=== PATIENT | female | born 1965 | race American Indian/Alaskan Native ===

== ENCOUNTER 2020-01-06 04:35 | Emergency (ER) | payer SELFPAY ==
[2020-01-06] MEDS ORDERED: levoFLOXacin 500 MG TAB PO ONE (08:08)
[2020-01-06] MEDS ORDERED: ALBUTEROL 2.5 MG/3 ML NEBU IH ONE (08:08)
[2020-01-06] MEDS ORDERED: IBUPROFEN 800 MG TAB PO ONE (08:09)
--- NOTE | 2020-01-06 08:10 | Emergency Department Report ---
Minor Respiratory - HPI Chief Complaint: Upper Respiratory Infection Stated Complaint: COUGH DIZZY W/ WEAKNESS Time Seen by Provider: 01/06/20 07:35 Duration: 5 Days (Patient is a 48) Pain Location: Chest Severity: mild Minor Respiratory: Yes Rhinorrhea, Yes Able to Tolerate Fluids, Yes Cough, Yes Fever, No Sore Throat, No Ear Pain, No Sick Contacts, No Hemoptysis, No Chest Pain, No Shortness of Breath Other History: Patient is a 54-year-old -[place] female who comes to the ER today with a cough that started on Sunday. She endorses some vomiting with the cough. She also reports fever up to 101 at home. She did get a influenza vaccine this year. In the triage area her temp was 100.3. Heart rate 110. Patient does have a history of diabetes, hypothyroidism and hypertension. She is a prior smoker. She takes her insulin and Synthroid daily. She has rhonchi on initial exam and given her past medical history and concerns for pneumonia. ED Review of Systems ROS: Stated complaint: COUGH DIZZY W/ WEAKNESS Other details as noted in HPI Comment: All other systems reviewed and negative ED Past Medical Hx - Past Medical History Previous Medical History?: Yes Hx Hypertension: Yes Hx CVA: No Hx Heart Attack/AMI: No Hx Congestive Heart Failure: No Hx Diabetes: Yes Hx Deep Vein Thrombosis: No Hx Pulmonary Embolism: No Hx GERD: No Additional medical history: Hyperlipedemia. hyperthyroid - Surgical History Past Surgical History?: Yes Additional Surgical History: Right ankle surgery. right thyroid removed - Family History Family history: no significant - Social History Smoking Status: Never Smoker Substance Use Type: None - Medications Home Medications: Home Medications Medication Instructions Recorded Confirmed Last Taken Type Azithromycin [Zithromax Z-DEYVI] 250 mg PO DAILY #6 tablet 01/06/20 Unknown Rx Benzonatate [Tessalon Perles] 100 mg PO Q12H PRN #20 capsule 01/06/20 Unknown Rx Fluticasone [Flonase] 1 spray NS QDAY #1 bottle 01/06/20 Unknown Rx predniSONE [Deltasone] 20 mg PO DAILY #5 tablet 01/06/20 Unknown Rx Minor Respiratory Exam - Exam General: Vital signs noted. No distress. Alert and acting appropriately. HEENT: Yes Moist Mucous Membranes, No Pharyngeal Erythema, No Pharyngeal Exudates, No Rhinorrhea, No Conjuctival Injection, No Frontal Tenderness, No Maxillary Tenderness Ear: Neither TM Bulge, Neither TM Erythema, Neither EAC Pain, Neither EAC Discharge Neck: Yes Supple, No Adenopathy Lungs: Yes Good Air Exchange, Yes Wheezes, Yes Ronchi, No Stridor, No Cough, No Labored Respirations, No Retractions, No Use of Accessory Muscles, No Other Abnormal Lung Sounds Heart: Yes Regular, No Murmur Abdomen: Yes Normal Bowel Sounds, No Tenderness, No Peritoneal Signs Skin: No Rash, No Edema Neurologic: Alert and oriented, no deficits. Musculoskeletal: Unremarkable. ED Course Vital Signs 01/06/20 04:40 Temperature 100.3 F H Pulse Rate 109 H Respiratory 18 Rate Blood Pressure 170/79 O2 Sat by Pulse 96 Oximetry ED Medical Decision Making - Radiology Data Radiology results: report reviewed, image reviewed - Medical Decision Making XRAY NOTED DUONEB IN ER- WITH IMPROVEMENT DC HOME WITH RX AND PCP FOLLOW UP Vital Signs (72 hours) 01/06/20 04:40 Temperature 100.3 F H Pulse Rate 109 H Respiratory 18 Rate Blood Pressure 170/79 O2 Sat by Pulse 96 Oximetry - Differential Diagnosis RO PNA Critical care attestation.: If time is entered above; I have spent that time in minutes in the direct care of this critically ill patient, excluding procedure time. ED Disposition Clinical Impression: Bronchitis, URI (upper respiratory infection) Disposition: DC- TO HOME OR SELFCARE Is pt being admited?: No Does the pt Need Aspirin: No Condition: Stable Instructions: Acute Bronchitis (ED) Additional Instructions: STAY WELL HYDRATED MOTRIN OR TYLENOL FOR FEVER MEDS ORDERED TODAY FOLLOW YOUR BLOOD SUGARS THEY MAY INC WITH INFECTION FOLLOW UP WITH PCP ON SUNDAY TO BE SURE YOU ARE GETTING BETTER Prescriptions: predniSONE [Deltasone] 20 mg PO DAILY #5 tablet Fluticasone [Flonase] 1 spray NS QDAY #1 bottle Benzonatate [Tessalon Perles] 100 mg PO Q12H PRN #20 capsule PRN Reason: Cough Azithromycin [Zithromax Z-DEYVI] 250 mg PO DAILY #6 tablet Referrals: COURTNEY GASTON MD [Staff Physician] - 3-5 Days Forms: Work/School Release Form(ED) Time of Disposition: 08:13
--- NOTE | 2020-01-06 08:19 | XRay Report ---
CHEST 2 VIEWS INDICATION: Shortness of breath, cough with nausea and vomiting for 2 days. Body aches and chills.. COMPARISON: None FINDINGS: Support devices: None. Heart: Within normal limits. Lungs/pleura: No acute air space or interstitial disease. No pneumothorax. Additional findings: None. IMPRESSION: Unremarkable chest films. Signer Name: Tirso Sagastume Jr, MD Signed: 01/06/2020 8:15 AM Workstation Name: [id number]
[2020-01-06] MEDS ORDERED: predniSONE 20 MG TAB PO NR (09:00)
[2020-01-06 10:12] VITALS: BP 113/58
[2020-01-06 10:57] LABS: Hematocrit 41.4 % (30.3-42.9); Hemoglobin 13.6 gm/dl (10.1-14.3); Mean Corpuscular HGB Conc 33 % (30-34); Mean Corpuscular Volume 87 fl (79-97); Platelet Count 223 K/mm3 (140-440); Red Blood Count 4.77 M/mm3 (3.65-5.03)
[2020-01-06 11:09] LABS: Albumin 3.8 g/dL (3.9-5); Calcium 8.8 mg/dL (8.4-10.2)
--- NOTE | 2020-01-06 11:50 | Event Note ---
Date: 01/06/20 1100 Sat 94 on room air denies cp or sob Pt added to history recent dx with non ca brain mass Lab Results 01/06/20 01/06/20 01/06/20 Range/Units 10:23 10:23 10:23 WBC 6.2 (4.5-11.0) K/mm3 RBC 4.77 (3.65-5.03) M/mm3 Hgb 13.6 (10.1-14.3) gm/dl Hct 41.4 (30.3-42.9) % MCV 87 (79-97) fl MCH 29 (28-32) pg MCHC 33 (30-34) % RDW 16.0 H (13.2-15.2) % Plt Count 223 (140-440) K/mm3 Lymph % (Auto) [place] % (Auto) [place] Eos % (Auto) [place] Baso % (Auto) [place] Lymph # [place] # [place] Eos # [place] Baso # [place] Seg Neutrophils % [place] Seg Neutrophils # [place] D-Dimer (0-234) ng/mlDDU Sodium 137 (137-145) mmol/L Potassium 3.7 (3.6-5.0) mmol/L Chloride 99.1 (98-107) mmol/L Carbon Dioxide 20 L (22-30) mmol/L Anion Gap 22 mmol/L BUN 16 (7-17) mg/dL Creatinine 1.4 H (0.7-1.2) mg/dL Estimated GFR 47 ml/min BUN/Creatinine Ratio 11 % Glucose 304 H (65-100) mg/dL Lactic Acid (0.7-2.0) mmol/L Calcium 8.8 (8.4-10.2) mg/dL Total Bilirubin 0.20 (0.1-1.2) mg/dL AST 11 (5-40) units/L ALT 12 (7-56) units/L Alkaline Phosphatase 55 (35-129) units/L Troponin T < 0.010 (0.00-0.029) ng/mL Total Protein 6.1 L (6.3-8.2) g/dL Albumin 3.8 L (3.9-5) g/dL Albumin/Globulin Ratio 1.7 % 01/06/20 01/06/20 01/06/20 Range/Units 10:23 10:23 11:18 WBC 6.4 (4.5-11.0) K/mm3 RBC 4.61 (3.65-5.03) M/mm3 Hgb 13.3 (10.1-14.3) gm/dl Hct 39.8 (30.3-42.9) % MCV 86 (79-97) fl MCH 29 (28-32) pg MCHC 33 (30-34) % RDW 15.8 H (13.2-15.2) % Plt Count 212 (140-440) K/mm3 Lymph % (Auto) [place] % (Auto) [place] Eos % (Auto) Baso % (Auto) Lymph # [place] # Eos # Baso # Seg Neutrophils % Seg Neutrophils # D-Dimer 319.95 H (0-234) ng/mlDDU Sodium (137-145) mmol/L Potassium (3.6-5.0) mmol/L Chloride (98-107) mmol/L Carbon Dioxide (22-30) mmol/L Anion Gap mmol/L BUN (7-17) mg/dL Creatinine (0.7-1.2) mg/dL Estimated GFR ml/min BUN/Creatinine Ratio % Glucose (65-100) mg/dL Lactic Acid 1.70 (0.7-2.0) mmol/L Calcium (8.4-10.2) mg/dL Total Bilirubin (0.1-1.2) mg/dL AST (5-40) units/L ALT (7-56) units/L Alkaline Phosphatase (35-129) units/L Troponin T (0.00-0.029) ng/mL Total Protein (6.3-8.2) g/dL Albumin (3.9-5) g/dL Albumin/Globulin Ratio % given ddimer elevated and recent brain mass- CTA chest ordered 1230 CT pending 1320 CTA negative sat 99 on room air and HR 90. reports feeling better dc home with dc plan of care and pcp follow up in AM.
[2020-01-06 12:00] LABS: Hematocrit 39.8 % (30.3-42.9); Hemoglobin 13.3 gm/dl (10.1-14.3); Mean Corpuscular HGB Conc 33 % (30-34); Mean Corpuscular Volume 86 fl (79-97); Platelet Count 212 K/mm3 (140-440); Red Blood Count 4.61 M/mm3 (3.65-5.03); Red Cell Distribution Width 15.8 % (13.2-15.2)
[2020-01-06 12:56] LABS: Basophils % (Manual) 0 % (0.0-1.8); Eosinophils % (Manual) 0 % (0.0-4.3); RBC Morphology Normal; Total Cells Counted 100; Toxic Vacuolation 2+
[2020-01-06 12:57] LABS: Platelet Estimate Consistent w Auto
--- NOTE | 2020-01-06 13:06 | Cat Scan Report ---
CTA chest with contrast INDICATION : hypoxia. TECHNIQUE: Axial imaging performed through the chest, with contrast bolus timing set to maximize opa cification of the pulmonary arteries. 3-plane MIP reformatted images were obtained. All CT scans at this location are performed using CT dose reduction for ALARA by means of automated exposure control. 100 mL of intravenous contrast administered. Consent was obtained prior to the administration of cont rast. COMPARISON: No relevant comparative imaging. FINDINGS: Bolus: Contrast bolus timing is adequate. PTE: No filling defect is present to suggest PTE. Mediastinum: Heart and great vessels appear normal. No pathologic mediastinal adenopathy. Lungs: Lungs are clear except for mild right lower lobe subsegmental atelectasis.. Upper abdomen: Limited imaging of the upper abdomen shows nothing acute. There is a small hiatal he rnia. Bones: Degenerative changes in the spine with nothing acute. IMPRESSION: 1. Negative for PTE. 2. No CHF or pneumonia. 3. Hiatal hernia. Signer Name: Escobar Bosch MD Signed: 01/06/2020 1:02 PM Workstation Name: [id number]
== END 2020-01-06 13:50 | disposition home or self-care (01) ==
LOC: ED 04:35
DX: J06.9 Acute upper respiratory infection, unspecified (principal); J40 Bronchitis, not specified as acute or chronic; I10 Essential (primary) hypertension; E11.9 Type 2 diabetes mellitus without complications; E78.5 Hyperlipidemia, unspecified; E03.9 Hypothyroidism, unspecified; Z88.2 Allergy status to sulfonamides; Z98.890 Other specified postprocedural states; Z79.899 Other long term (current) drug therapy; Z87.891 Personal history of nicotine dependence; Z79.4 Long term (current) use of insulin
CPT/HCPCS: 36415; 71046; 71275; 80053; 82140; 84484; 85007; 85025; 85379; 87040; 93005; 93010; 94640; 99284; Q9967; 94644